=== PATIENT | male | born 1975 | race Caucasian/White ===

== ENCOUNTER 2016-03-12 17:14 | Emergency (ER) | payer OTHER ==
[2016-03-12 18:18] VITALS: BP 136/87
--- NOTE | 2016-03-12 18:45 | UC ---
Respiratory Complaint HPI - HPI Summary HPI Summary: cough and congestion for 4 weeks. Two rounds of antibiotics, currently on Augmentin and finished Zithromax. "I just can't take it anymore." Sinus congestion, ears "feel like they're underwater", dry tickly cough. No fever. No vomiting. - History of Current Complaint Chief Complaint: UCEar Stated Complaint: CHEST CONGESTION/EARS Time Seen by Provider: 03/12/16 18:31 Hx Obtained From: Patient Onset/Duration: Gradual Onset, Lasting Weeks - 4 Timing: Constant Severity Initially: Mild Severity Currently: Mild Character: Cough: Productive - scant sputum Aggravating Factors: Nothing Alleviating Factors: Nothing Associated Signs And Symptoms: Positive: URI, Nasal Congestion, Hoarseness, Sinus Discomfort. Negative: Dyspnea, Fever, Pleuritic Chest Pain, Wheezing, Hemoptysis, Dizziness - Risk Factors Pulmonary Embolism Risk Factors: Negative Cardiac Risk Factors: Negative Pseudomonas Risk Factors: Negative Tuberculosis Risk Factors: Negative - Allergies/Home Medications Allergies/Adverse Reactions: Allergies Allergy/AdvReac Type Severity Reaction Status Date / Time seasonal Allergy Sneezing Uncoded 03/04/16 18:21 PMH/Surg Hx/FS Hx/Imm Hx Endocrine History Of: Denies: Diabetes, Thyroid Disease, Hyperthyroidism, Hypothyroidism, Dyslipidemia Cardiovascular History Of: Reports: Hypertension Denies: Cardiac Disorders, Pacemaker/ICD, Myocardial Infarction, Congestive Heart Failure, Atrial Fibrillation, Deep Vein Thrombosis, Bleeding Disorders Respiratory History Of: Denies: COPD, Asthma GI/ History Of: Denies: Gastroesophageal Reflux, Ulcer, Gastrointestinal Bleed, Gall Bladder Disease, Kidney Stones, Diverticulitis, Renal Disease, Urosepsis Neurological History Of: Reports: Seizures Denies: TIA, CVA, Dementia, Migraine Psychological History Of: Reports: Depression Denies: Anxiety, Bipolar Disorder, Schizophrenia, Post Traumatic Stress Disorder Cancer History Of: Denies: Lung Cancer, Colorectal Cancer, Breast Cancer, Prostate Cancer, Cervical Cancer - Surgical History Surgical History: Yes Surgery Procedure, Year, and Place: right meniscus repair 2012., muscle surgery age 4 on eyes - Family History Known Family History: Positive: Cardiac Disease - Social History Occupation: Employed Full-time - home health care Lives: With Family Alcohol Use: Rare Substance Use Type: None Smoking Status (MU): Former Smoker Type: Cigarettes, Cigars Amount Used/How Often: 1/2 PPD Length of Time of Smoking/Using Tobacco: ON and OFF Have You Smoked in the Last Year: Yes When Did the Patient Quit Smoking/Using Tobacco: 8 YRS AGO Review of Systems Constitutional: Negative Skin: Negative Eyes: Negative ENT: Ear Ache - pressure, dec hearing, Nasal Discharge Respiratory: Cough Cardiovascular: Negative Gastrointestinal: Negative Genitourinary: Negative Motor: Negative Neurovascular: Negative Musculoskeletal: Negative Neurological: Negative Psychological: Negative All Other Systems Reviewed And Are Negative: Yes Physical Exam Triage Information Reviewed: Yes Appearance: Well-Appearing, No Pain Distress, Well-Nourished, Obese Vital Signs: Initial Vital Signs Temp 97.9 F 03/12/16 18:13 Pulse 76 03/12/16 18:13 Resp 18 03/12/16 18:13 BP 136/87 03/12/16 18:13 Pulse Ox 97 03/12/16 18:13 Vital Signs Reviewed: Yes Eye Exam: Normal ENT: Positive: Hearing grossly normal, Pharynx normal, Nasal congestion, Nasal drainage, TMs normal, Muffled/hoarse voice - hoarse. Negative: Pharyngeal erythema, TM bulging, TM dull, TM red, Tonsillar swelling, Tonsillar exudate, Trismus Respiratory Exam: Normal Respiratory: Positive: Lungs clear, Normal breath sounds, No respiratory distress, No accessory muscle use Cardiovascular Exam: Normal Musculoskeletal Exam: Normal Neurological Exam: Normal Psychological Exam: Normal Skin Exam: Normal Diagnostic Evaluation - Laboratory O2 Sat by Pulse Oximetry: 97 Respiratory Course/Dx - Differential Dx/Diagnosis Differential Diagnosis/HQI/PQRI: Bronchitis, Lower Resp Infection, Sinusitis Provider Diagnoses: URI Discharge - Discharge Plan Condition: Stable Disposition: HOME Prescriptions: Oxymetazoline HCl [Afrin Nasal [place]] 0.05 % NA BID PRN #1 spr PRN Reason: nasal/ear congestion Pseudoephedrine HCl [Sudafed 12 Hour] 120 mg PO BID PRN #20 tab PRN Reason: Congestion Patient Education Materials: Upper Respiratory Infection (ED) Referrals: Edna Morales PA [Primary Care Provider] -
== END 2016-03-12 18:51 | disposition home or self-care (01) ==
LOC: UCCORT 17:14
DX: J06.9 Acute upper respiratory infection, unspecified (principal); Z87.891 Personal history of nicotine dependence
CPT/HCPCS: 99212; G0463

== ENCOUNTER 2016-06-09 15:09 | Emergency (ER) | payer OTHER ==
[2016-06-09 17:03] VITALS: BP 130/76
--- NOTE | 2016-06-09 17:47 | UC ---
Skin Complaint HPI - History of Current Complaint Chief Complaint: UCSkin Time Seen by Provider: 06/09/16 17:35 Stated Complaint: RASH HANDS Hx Obtained From: Patient Onset/Duration: Gradual Onset, Lasting Days, Lasting Weeks - 2, Worse Since - onset Onset Severity: Mild Current Severity: Moderate Location: Discrete - both hands. Character: Pain, Redness Aggravating: Wet Conditions Alleviating: Nothing Associated Signs & Symptoms: Positive: Negative Related History: Other: - h/o eczema - Allergy/Home Medications Allergies/Adverse Reactions: Allergies Allergy/AdvReac Type Severity Reaction Status Date / Time seasonal Allergy Sneezing Uncoded 06/09/16 17:03 Review of Systems Skin: Rash All Other Systems Reviewed And Are Negative: Yes PMH/Surg Hx/FS Hx/Imm Hx Endocrine History Of: Denies: Diabetes, Thyroid Disease, Hyperthyroidism, Hypothyroidism, Dyslipidemia Cardiovascular History Of: Reports: Hypertension Denies: Cardiac Disorders, Pacemaker/ICD, Myocardial Infarction, Congestive Heart Failure, Atrial Fibrillation, Deep Vein Thrombosis, Bleeding Disorders Respiratory History Of: Denies: COPD, Asthma GI/ History Of: Denies: Gastroesophageal Reflux, Ulcer, Gastrointestinal Bleed, Gall Bladder Disease, Kidney Stones, Diverticulitis, Renal Disease, Urosepsis Neurological History Of: Reports: Seizures Denies: TIA, CVA, Dementia, Migraine Psychological History Of: Reports: Depression Denies: Anxiety, Bipolar Disorder, Schizophrenia, Post Traumatic Stress Disorder Cancer History Of: Denies: Lung Cancer, Colorectal Cancer, Breast Cancer, Prostate Cancer, Cervical Cancer - Surgical History Surgical History: Yes Surgery Procedure, Year, and Place: right meniscus repair 2012., muscle surgery age 4 on eyes - Family History Known Family History: Positive: Cardiac Disease, Hypertension, Diabetes - Social History Occupation: Employed Full-time Lives: With Family Alcohol Use: Rare Substance Use Type: None Smoking Status (MU): Former Smoker Type: Cigarettes, Cigars Amount Used/How Often: 1/2 PPD Length of Time of Smoking/Using Tobacco: ON and OFF Have You Smoked in the Last Year: Yes When Did the Patient Quit Smoking/Using Tobacco: 8 YRS AGO Physical Exam Triage Information Reviewed: Yes Appearance: Well-Appearing, No Pain Distress, Obese Vital Signs: Initial Vital Signs Temp 97.7 F 06/09/16 17:00 Pulse 71 06/09/16 17:00 Resp 16 06/09/16 17:00 BP 130/76 06/09/16 17:00 Pulse Ox 100 06/09/16 17:00 Vital Signs Reviewed: Yes Eyes: Positive: Conjunctiva Clear Neck exam: Normal Respiratory Exam: Normal Cardiovascular Exam: Normal Musculoskeletal Exam: Normal Neurological Exam: Normal Psychological Exam: Normal Skin: Positive: rashes - scaling rash dorsal hands with cracking. Course/Dx - Differential Diagnoses - Skin Complaint Differential Diagnoses: Eczema, [place], Urticaria - Diagnoses Provider Diagnoses: Eczema Discharge - Discharge Plan Condition: Stable Disposition: HOME Prescriptions: Betamethasone Dip 0.05% ON(NF) [Betamethasone Dipr 0.05% OINT(NF)] 1 applic TOPICAL BID #50 gm Patient Education Materials: Eczema (ED), Betamethasone Dipropionate (On the skin)
== END 2016-06-09 17:55 | disposition home or self-care (01) ==
LOC: UCCORT 15:09
DX: L30.9 Dermatitis, unspecified (principal); I10 Essential (primary) hypertension; G40.909 Epilepsy, unspecified, not intractable, without status epilepticus; F32.9 Major depressive disorder, single episode, unspecified; Z87.891 Personal history of nicotine dependence
CPT/HCPCS: 99212; G0463

== ENCOUNTER 2017-02-22 19:11 | Emergency (ER) | payer OTHER ==
[2017-02-22 20:00] VITALS: BP 149/89
[2017-02-22] MEDS ORDERED: Ondansetron ODT TAB* 4 MG PO ONE ×2 (20:06→21:00)
--- NOTE | 2017-02-22 20:20 | UC ---
Abdominal Pain Male HPI - History of Current Complaint Chief Complaint: UCGI Stated Complaint: NAUSEA, VOMITING, DIARRHEA Time Seen by Provider: 02/22/17 20:00 Hx Obtained From: Patient Onset/Duration: Gradual Onset - 2-3 days, Worse Since - today n/v/ d no fevers Timing: Constant Severity Initially: Moderate Severity Currently: Moderate Location: Diffuse Radiates: No Character: Cramping Aggravating Factor(s): Food Alleviating Factor(s): Rest Associated Signs And Symptoms: Positive: Decreased Appetite, Nausea, Vomiting, Diarrhea - Allergies/Home Medications Allergies/Adverse Reactions: Allergies Allergy/AdvReac Type Severity Reaction Status Date / Time seasonal Allergy Sneezing Uncoded 02/22/17 19:50 PMH/Surg Hx/FS Hx/Imm Hx Previously Healthy: No Endocrine History: Diabetes - "pre-diabetic" Cardiovascular History: Hypertension Neurological History: Seizures - Surgical History Surgical History: Yes Surgery Procedure, Year, and Place: right meniscus repair 2012., muscle surgery age 4 on eyes - Family History Known Family History: Positive: Cardiac Disease, Hypertension, Diabetes - Social History Occupation: Unemployed Lives: With Family Alcohol Use: Rare Substance Use Type: None Smoking Status (MU): Former Smoker Type: Cigarettes, Cigars Amount Used/How Often: 1/2 PPD Length of Time of Smoking/Using Tobacco: ON and OFF Have You Smoked in the Last Year: Yes When Did the Patient Quit Smoking/Using Tobacco: 8 YRS AGO Review of Systems Constitutional: Chills, Fatigue Skin: Negative Eyes: Negative ENT: Negative Respiratory: Negative Cardiovascular: Negative Gastrointestinal: Abdominal Pain, Vomiting, Diarrhea, Nausea Genitourinary: Negative Motor: Negative Neurovascular: Negative Musculoskeletal: Negative Neurological: Negative Psychological: Negative Is Patient Immunocompromised?: No All Other Systems Reviewed And Are Negative: Yes Physical Exam Triage Information Reviewed: Yes Appearance: No Pain Distress, Ill-Appearing, Obese Vital Signs: Initial Vital Signs Temp 98.6 F 02/22/17 19:52 Pulse 83 02/22/17 19:52 Resp 20 02/22/17 19:52 BP 149/89 02/22/17 19:52 Pulse Ox 98 02/22/17 19:52 Vital Signs Reviewed: Yes Eye Exam: Normal Eyes: Positive: Conjunctiva Clear ENT Exam: Normal ENT: Positive: Normal ENT inspection, Hearing grossly normal, Pharynx normal, TMs normal, Uvula midline. Negative: Nasal congestion, Nasal drainage, Tonsillar swelling, Tonsillar exudate, Trismus, Muffled voice, Hoarse voice, Dental tenderness, Sinus tenderness Dental Exam: Normal Neck exam: Normal Neck: Positive: Supple, Nontender, No Lymphadenopathy Respiratory Exam: Normal Respiratory: Positive: Chest non-tender, Lungs clear, Normal breath sounds, No respiratory distress, No accessory muscle use Cardiovascular Exam: Normal Cardiovascular: Positive: RRR, No Murmur, Pulses Normal, Brisk Capillary Refill Abdominal Exam: Other Abdomen Description: Positive: No Organomegaly, Soft, Other: - difuse discomfort. Negative: CVA Tenderness (R), CVA Tenderness (L), McBurney's Point Tenderness, Peritoneal Signs Bowel Sounds: Positive: Present Musculoskeletal Exam: Normal Musculoskeletal: Positive: Strength Intact, ROM Intact, No Edema Neurological Exam: Normal Neurological: Positive: Alert, Muscle Tone Normal Psychological Exam: Normal Skin Exam: Normal Diagnostics - Laboratory Diagnostic Studies Completed/Ordered: FSBS 82mg/dl, UA +1 blood trace protien Re-Evaluation - Re-Evaluation First Eval Change: Improved - after Zofran drank a glass of water no further vomiting-- Abd Pain Male Course/Dx - Course Course Of Treatment: rest zofran, fluids in small amounts follow with pcp if not resolved in 1-2 days - Differential Dx/Clinical Impression Provider Diagnoses: Acute Nausea/vomiting/diarrhea Discharge - Discharge Plan Condition: Stable Disposition: HOME Patient Education Materials: Acute Nausea and Vomiting (ED), Acute Diarrhea (ED ), Nutrition Tips for Relief of Diarrhea (ED) Referrals: Edna Morales PA [Primary Care Provider] - 2 Days
--- OUTSIDE RECORDS SUMMARY | 2017-02-24 11:21 | XMS REPORT | Clinical Summary ---
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, without mention of intractable epilepsy 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 Active GWENDOLYN Other ant neck, KERATOSIS SUSAN seborrheic mult on back KARLA JACOME keratosis Obstructive 327.23 Active GWENDOLYN Obstructive sleep apnea 06/21 06/21 SUSAN sleep apnea KARLA JACOME (adult) (pediatric) Asthma, 493.10 Active GWENDOLYN Intrinsic Exercise intermittent, 11/05 11/05 SUSAN asthma, induced moderate KARLA JACOME unspecified MORBID Active GWENDOLYN Morbid obesity OBESITY 11/05 11/05 SUSAN JACOME Hypertension 401.1 Active GWENDOLYN Benign under control 11/05 07/11 SUSAN essential KARLA JACOME hypertension Prediabetes 790.29 Active Sofie Other abnormal A1c--5.7 11/06 11/06 Kianna glucose 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 Immunization V05.9 Active GWENDOLYN Need for 04/21 04/21 SUSAN prophylactic KARLA JACOME vaccination and inoculation against unspecified single disease Systolic 785.2 Active GWENDOLYN Undiagnosed grade 2-3 / heart murmur 04/21 04/21 SUSAN cardiac 6 KARLA JACOME murmurs pansystolic murmur Annual exam V72.31 Active GWENDOLYN Routine 04/21 04/21 SUSAN gynecological KARLA JACOME examination Medication List Medication Instructions Start Stop Generic Name NDC Status Provider Patient Date Date Instruction DEPAKOTE ER 3 by mouth DIVALPROEX 572566815 Active GWENDOLYN 500 MG ORAL every 11/24 SODIUM 13 SUSAN TABLET morning, 4 by ACOSTA EXTENDED mouth qhs PA RELEASE 24 HOUR TEGRETOL-XR 2 by mouth CARBAMAZEPINE 785772323 Active GWENDOLYN 400 MG ORAL every BID 11/24 05 SUSAN TABLET ACOSTA EXTENDED PA RELEASE 12 HOUR VENTOLIN 2 puffs every ALBUTEROL 129953961 Active GWENDOLYN HFA 108 (90 4 - 6 hours 11/05 SULFATE 20 SUSAN Base) as needed KARLA MCG/ACT PA INHALATION AEROSOL SOLUTION VANDA daily FEXOFENADINE 274726732 Active GWENDOLYN ALLERGY 07/11 HCL TABS 14 SUSAN TABLET KARLA JACOME LISINOPRIL TAKE 1 TABLET LISINOPRIL 289766172 Active GWENDOLYN 20 MG ORAL BY MOUTH 08/06 01 SUSAN TABLET EVERY DAY KARLA JACOME Immunizations Vaccine Administration Date Value Standard Description PPD results in mm 0 TB-PPD, interpretation of negative results influenza immunization (Flu given influenza virus vaccine, Vax) has been administered unspecified formulation Vital Signs Date Name Value Unit Range Description blood pressure, diastolic 77 mm[Hg] BP hanccok blood pressure, systolic 120 mm[Hg] BP sys height E&M 71 [in_us] Bdy height pulse rate E&M 82 /min Heart rate respiratory rate E&M 24 /min Resp rate temperature E&M 98.3 [degF] Body temperature weight E&M 328 [lb_av] Weight Measured blood pressure, diastolic 76 mm[Hg] BP [place] blood pressure, systolic 130 mm[Hg] BP sys height E&M 71 [in_us] Bdy height pulse rate E&M 79 /min Heart rate respiratory rate E&M 18 /min Resp rate temperature E&M 98.5 [degF] Body temperature weight E&M 313 [lb_av] Weight Measured blood pressure, diastolic 75 mm[Hg] BP [place] blood pressure, systolic 118 mm[Hg] BP sys height E&M 71 [in_us] Bdy height pulse rate E&M 73 /min Heart rate respiratory rate E&M 18 /min Resp rate temperature E&M 98.1 [degF] Body temperature weight E&M 325 [lb_av] Weight Measured blood pressure, diastolic, second 90 mm[Hg] BP hancock observation blood pressure, diastolic 99 mm[Hg] BP [place] blood pressure, systolic, second 135 mm[Hg] BP sys observation blood pressure, systolic 142 mm[Hg] BP sys height E&M 71 [in_us] Bdy height pulse rate E&M 76 /min Heart rate respiratory rate E&M 22 /min Resp rate temperature E&M 97.6 [degF] Body temperature weight E&M 333 [lb_av] Weight Measured Diagnostic Results Date Name Value Unit Range Description Lab Report: A1C--5.8, BASIC METABOLIC PANEL, LDL--100 - Chemistry Estimated Glomerular Filtration >60 mL/min mL/min/1.73m2 > 60 Rate (calc) Glomerular Filtration rate >60 mL/min >60 [place] urea nitrogen/creatinine ratio, 20.0 ratio serum sodium, serum 144 mmol/L 196-375 7057/12/12 potassium, serum 3.6 mmol/L 3.5-5.1 chloride, serum 106 mmol/L 98-107 carbon dioxide, venous blood 30 mmol/L 21-32 anion gap, serum 8 mEq/L 8-16 calcium, serum 9.2 mg/dL 8.5-10.1 cholesterol, serum 201 mg/dL <200 triglyceride, serum, fasting 258 mg/dL <150 HDL cholesterol, serum 49 mg/dL >40 LDL cholesterol, serum 100 mg/dL < 100 alanine aminotransferase (SGPT), 49 U/L -78 serum creatinine, serum 0.6 mg/dL 0.6-1.3 urea nitrogen, blood 12 mg/dL 7-18 blood glucose, random 97 mg/dL 74-106 Estimated Average Glucose 120 mg/dL hemoglobin A1C, blood, as % of 5.8 % 4.2-6.3 total hemoglobin Lab Report: BLOOD CULTURE--no growth, final - Microbiology blood culture NO GROWTH: FINAL REPORT blood culture NO GROWTH: FINAL REPORT Lab Report: BLOOD CULTURE--no growth, final - Serology blood culture, anaerobic NO GROWTH: FINAL REPORT blood culture, anaerobic NO GROWTH: FINAL REPORT Lab Report: COMPREHENSIVE METABOLIC PANEL, LACTIC ACID - Chemistry urea nitrogen/creatinine ratio, 12.2 ratio serum sodium, serum 138 mmol/L 677-450 5007/04/14 potassium, serum 4.0 mmol/L 3.5-5.1 chloride, serum 103 mmol/L 98-107 carbon dioxide, venous blood 26 mmol/L -32 anion gap, serum 9 mEq/L 8-16 calcium, serum 8.5 mg/dL 8.5-10.1 protein, total, serum 7.7 g/dL 6.4-8.2 albumin, serum 4.0 g/dL 3.4-5.0 globulins, serum, total 3.7 g/dL 1.9-4.3 albumin/globulin ratio, serum 1.1 ratio aspartate aminotransferase (SGOT), 43 U/L 15-37 serum alanine aminotransferase (SGPT), 64 U/L 12-78 serum Glomerular Filtration rate >60 mL/min >60 [place] Estimated Glomerular Filtration >60 mL/min mL/min/1.73m2 > 60 Rate (calc) creatinine, serum 0.9 mg/dL 0.6-1.3 urea nitrogen, blood 11 mg/dL 7-18 blood glucose, random 106 mg/dL 74-106 Lab Report: UA, CBS W/AUTOMATED DIFF, SLIDE REVIEW - Chemistry leukocyte (WBC) esterase, urine NEGATIVE NEGATIVE urobilinogen, urine 0.2 E.U./DL {Ehrlich_U}/dL 0.2-1.0 Absolute Neutrophil count 4.67 K/UL {Cells}/uL 1.8-7.0 Absolute Lymphocytes 0.89 10*3/uL 1.0-4.0 BASOPHILS 0.03 0.0-0.1 Lab Report: UA, CBS W/AUTOMATED DIFF, SLIDE REVIEW - Hematology Eosinophil Absolute Count 0.07 10*3/uL 0.0-0.5 leukocyte count, blood 7.5 10*3/mm3 3.4-10.5 erythrocyte (RBC) count 4.76 M/UL 10*6/mm3 4.20-5.80 hemoglobin, blood 13.9 g/dL 12.8-17.0 hematocrit, blood 39.6 % 38.0-48.0 mean corpuscular volume, RBC 83.2 fL 80.0-96.0 mean corpuscular hemoglobin, RBC 29.2 pg 27.0-33.0 mean corpuscular hemoglobin concentration, 35.1 G/DL % 31.7- 36.0 RBC platelet count 188 10*3/mm3 019-853 2909/04/14 red blood cell distribution width, size 40.1 fL 36-51 density mean platelet volume 10.2 fL 6.6-10.6 neutrophils as percent of blood leukocytes 62.6 % 33.0-73.0 lymphocytes as percent of blood leukocytes 11.9 % 20.0-42.0 monocytes as percent of blood leukocytes 24.2 % 0.0-10.0 eosinophils as percent of blood leukocytes 0.9 % 0.0-6.6 basophils as percent of blood leukocytes 0.4 % 0.0-1.1 Lab Report: UA, CBS W/AUTOMATED DIFF, SLIDE REVIEW - Urinalysis urine color YELLOW YELLOW blood in urine (hemoglobin) by dipstick TRACE NEGATIVE nitrite, urine, semiquantitative NEGATIVE NEGATIVE appearance, urine CLEAR CLEAR glucose, urine, semiquantitative NEGATIVE NEGATIVE bilirubin, urine NEGATIVE NEGATIVE ketones, urine, by test strip NEGATIVE NEGATIVE specific gravity, urine 1.020 1.010-1.030 Encounters Code Encounter Date Provider Facility CPT-70511 Ofc Vst, Est Level III GWENDOLYN [facility] 15:09:48 EDT PA CPT-82495 Ofc Vst, Est Level II GWENDOLYN [facility] 16:14:19 EDT PA CPT-23240 Ofc Vst, Est Level III GWENDOLYN [facility] 17:56:23 EST PA CPT-72811 Ofc Vst, Est Level III GWENDOLYN [facility] 10:30:23 EDT PA CPT-30021 Ofc Vst, Est Level III GWENDOLYN [facility] 14:43:14 EST PA CPT-06741 Ofc Vst, Est Level III GWENDOLYN [facility] 10:28:48 EST PA CPT-18359 Ofc Vst, Est Level III GWENDOLYN ACOSTA [facility] 10:11:19 EDT PA CPT-76188 Ofc Vst, New Level II GWENDOLYN ACOSTA [facility] 09:53:40 EDT PA Procedures Code Procedure Name Date Entry Date Standard Description CPT-94978 Venipuncture 17:45:48 EST CPT-15607 Est - PE 40-64 Y 15:49:03 EST CPT-05082 Influenza 3 yrs. & up 15:34:48 EST CPT-26375 Admin one Imm 15:34:48 EST CPT-23275 Venipuncture 13:49:13 EDT CPT-85745 EKG w/ Int/rep 10:25:48 EDT CPT-98906 Est - PE 18-39 Y 17:44:56 EDT CPT-37574 Urine Dip - In House 11:14:28 EDT CPT-91219 Venipuncture 11:12:41 EDT CPT-98970 HIV Pretest counseling 11:12:40 EDT CPT-72253 PPD 11:09:44 EDT CPT-93819 Influenza 3 yrs. & up 09:45:10 EDT CPT-95578 Admin one Imm 09:45:10 EDT CPT-10963 Venipuncture 09:45:10 EDT CPT-04937 HIV Pretest counseling 09:45:10 EDT
--- OUTSIDE RECORDS SUMMARY | 2017-02-24 11:22 | XMS REPORT | Clinical Summary ---
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 Immunization V05.9 Active GWENDOLYN Need for 04/21 04/21 SUSNA prophylactic KARLA JACOME vaccination and inoculation against [...] Instruction DEPAKOTE ER 3 by mouth DIVALPROEX 325499418 Active GWENDOLYN 500 MG ORAL every 11/24 SODIUM 13 SUSAN TABLET morning, 4 by ACOSTA EXTENDED mouth qhs PA RELEASE 24 HOUR TEGRETOL-XR 2 by mouth CARBAMAZEPINE 732360769 Active GWENDOLYN 400 MG ORAL every BID 11/24 05 SUSAN TABLET ACOSTA EXTENDED PA RELEASE 12 HOUR VENTOLIN 2 puffs every ALBUTEROL 835896776 Active GWENDOLYN HFA 108 (90 4 - 6 hours 11/05 SULFATE 20 SUSAN Base) as needed KARLA MCG/ACT PA INHALATION AEROSOL SOLUTION VANDA daily FEXOFENADINE 502158866 Active GWENDOLYN ALLERGY 07/11 HCL TABS 14 SUSAN TABLET KARLA JACOME LISINOPRIL TAKE 1 TABLET LISINOPRIL 311983735 Active GWENDOLYN 20 MG ORAL BY MOUTH 08/06 01 SUSAN TABLET EVERY DAY KARLA JACOME Immunizations Vaccine Administration Date Value Standard Description TB-PPD, interpretation of negative results PPD results in mm 0 influenza immunization (Flu given influenza virus vaccine, Vax) has been administered unspecified formulation Vital Signs Date Name Value Unit Range Description blood pressure, diastolic 77 mm[Hg] BP hancock blood pressure, systolic 120 mm[Hg] BP sys [...] Name Value Unit Range Description Lab Report: BLOOD CULTURE--no growth, final - Microbiology blood culture NO GROWTH: FINAL REPORT blood culture NO GROWTH: FINAL REPORT Lab Report: BLOOD CULTURE--no growth, final - Serology blood culture, anaerobic NO GROWTH: FINAL REPORT blood culture, anaerobic NO GROWTH: FINAL REPORT Lab Report: COMPREHENSIVE METABOLIC PANEL, LACTIC ACID - Chemistry blood glucose, random 106 mg/dL 74-106 urea nitrogen, blood 11 mg/dL 7-18 creatinine, serum 0.9 mg/dL 0.6-1.3 Estimated Glomerular Filtration >60 mL/min mL/min/1.73m2 > 60 Rate (calc) Glomerular Filtration rate >60 mL/min >60 [place] urea nitrogen/creatinine ratio, 12.2 ratio serum sodium, serum 138 mmol/L 635-919 5962/04/14 potassium, serum 4.0 mmol/L 3.5-5.1 chloride, serum 103 mmol/L 98-107 carbon dioxide, venous blood 26 mmol/L 21-32 anion gap, serum 9 mEq/L 8-16 calcium, serum 8.5 mg/dL 8.5-10.1 protein, total, serum 7.7 g/dL 6.4-8.2 albumin, serum 4.0 g/dL 3.4-5.0 globulins, serum, total 3.7 g/dL 1.9-4.3 albumin/globulin ratio, serum 1.1 ratio aspartate aminotransferase (SGOT), 43 U/L 15-37 serum alanine aminotransferase (SGPT), 64 U/L 12-78 serum Lab Report: UA, CBS W/AUTOMATED DIFF, SLIDE [...] 31.7- 36.0 RBC platelet count 188 10*3/mm3 409-028 4870/04/14 red blood cell distribution width, size 40.1 [...] REVIEW - Urinalysis urine color YELLOW YELLOW appearance, urine CLEAR CLEAR glucose, urine, semiquantitative NEGATIVE NEGATIVE bilirubin, urine NEGATIVE NEGATIVE ketones, urine, by test strip NEGATIVE NEGATIVE specific gravity, urine 1.020 1.010-1.030 blood in urine (hemoglobin) by dipstick TRACE NEGATIVE nitrite, urine, semiquantitative NEGATIVE NEGATIVE Encounters Code Encounter Date Provider Facility CPT-40933 Ofc Vst, Est Level III [facility] 15:09:48 EDT PA CPT-59165 Ofc Vst, Est Level II [facility] 16:14:19 EDT PA CPT-30450 Ofc Vst, Est Level III GWENDOLYN ACOSTA [facility] 17:56:23 EST PA CPT-49018 Ofc Vst, Est Level III GWENDOLYN ACOSTA [facility] 10:30:23 EDT PA CPT-91651 Ofc Vst, Est Level III GWENDOLYN ACOSTA [facility] 14:43:14 EST PA CPT-55311 Ofc Vst, Est Level III GWENDOLYN ACOSTA [facility] 10:28:48 EST PA CPT-27546 Ofc Vst, Est Level III GWENDOLYN SUSAN ACOSTA [facility] 10:11:19 EDT PA CPT-28715 Ofc Vst, New Level II GWENDOLYN ACOSTA [facility] 09:53:40 EDT PA Procedures Code Procedure Name Date Entry Date Standard Description CPT-51208 Venipuncture 17:45:48 EST CPT-58395 Est - PE 40-64 Y 15:49:03 EST CPT-25865 Influenza 3 yrs. & up 15:34:48 EST CPT-49514 Admin one [facility] 15:34:48 EST CPT-20178 Venipuncture 13:49:13 EDT CPT-62627 EKG w/ Int/rep 10:25:48 EDT CPT-28558 Est - PE 18-39 Y 17:44:56 EDT CPT-41824 Urine Dip - In House 11:14:28 EDT CPT-85170 Venipuncture 11:12:41 EDT CPT-04350 HIV Pretest counseling 11:12:40 EDT CPT-17852 PPD 11:09:44 EDT CPT-34053 Influenza 3 yrs. & up 09:45:10 EDT CPT-72786 Admin one Imm 09:45:10 EDT CPT-04687 Venipuncture 09:45:10 EDT CPT-59525 HIV Pretest counseling 09:45:10 EDT
== END 2017-02-22 21:13 | disposition home or self-care (01) ==
LOC: UCCORT 19:11
DX: R11.2 Nausea with vomiting, unspecified (principal); R19.7 Diarrhea, unspecified; R53.83 Other fatigue; R73.03 Prediabetes; I10 Essential (primary) hypertension; R56.9 Unspecified convulsions; E66.9 Obesity, unspecified; Z87.891 Personal history of nicotine dependence
CPT/HCPCS: 81003; 99212; A9270-GY; G0463

== ENCOUNTER 2017-12-27 08:17 | Emergency (ER) | payer OTHER ==
[2017-12-27 08:42] VITALS: BP 126/77
--- NOTE | 2017-12-27 09:08 | UC ---
Throat Pain/Nasal Gavino HPI - HPI Summary HPI Summary: Sore throat, congestion, cough for about 7 days. No fever. No sinus disease or prior surgery. No asthma but he has needed MDI in the past for cough and wheezing. cough is productive of yellow. No sob or chest pain. - History of Current Complaint Chief Complaint: UCRespiratory Stated Complaint: SORE THROAT, COUGH, CONGESTION Time Seen by Provider: 12/27/17 08:29 Hx Obtained From: Patient Onset/Duration: Gradual Onset, Lasting Days Severity: Moderate Pain Intensity: 0 Cough: Productive Associated Signs & Symptoms: Positive: Wheezing, Sinus Discomfort, Nasal Discharge. Negative: FB Sensation, Hoarseness, Fever, Vomiting, Rash - Epiglottits Risk Factors Epiglottis Risk Factors: Negative - Allergies/Home Medications Allergies/Adverse Reactions: Allergies Allergy/AdvReac Type Severity Reaction Status Date / Time seasonal Allergy Sneezing Uncoded 12/27/17 08:37 PMH/Surg Hx/FS Hx/Imm Hx Previously Healthy: No - MASON. - Surgical History Surgical History: Yes Surgery Procedure, Year, and Place: right meniscus repair 2012., muscle surgery age 4 on eyes - Family History Known Family History: Positive: Cardiac Disease, Hypertension, Diabetes - Social History Occupation: Employed Full-time Lives: With Family - Daughter had similar illness prior to this. Alcohol Use: Rare Substance Use Type: None Smoking Status (MU): Former Smoker Type: Cigarettes, Cigars Amount Used/How Often: 1/2 PPD Length of Time of Smoking/Using Tobacco: ON and OFF Have You Smoked in the Last Year: Yes When Did the Patient Quit Smoking/Using Tobacco: 8 YRS AGO Review of Systems ENT: Sore Throat, Sinus Congestion Respiratory: Cough All Other Systems Reviewed And Are Negative: Yes Physical Exam Triage Information Reviewed: Yes Appearance: Well-Appearing, Obese Vital Signs: Initial Vital Signs Temp 97.3 F 12/27/17 08:37 Pulse 73 12/27/17 08:37 Resp 18 12/27/17 08:37 BP 126/77 12/27/17 08:37 Pulse Ox 97 12/27/17 08:37 Vital Signs Reviewed: Yes Eyes: Positive: Conjunctiva Clear ENT: Positive: Nasal congestion, TMs normal, Tonsillar swelling, Hoarse voice, Sinus tenderness, Uvula midline. Negative: Nasal drainage, TM bulging, TM dull , TM red, Tonsillar exudate, Trismus, Muffled voice Neck: Positive: Supple, Nontender, No Lymphadenopathy Respiratory: Positive: Lungs clear, No respiratory distress, No accessory muscle use, Wheezing. Negative: Respiratory distress, Decreased breath sounds, Accessory muscle use Cardiovascular: Positive: No Murmur, Pulses Normal, Brisk Capillary Refill Abdomen Description: Positive: No Organomegaly, Soft. Negative: Distended, Guarding Male Genital Exam: Positive: No Hernia Musculoskeletal: Positive: Strength Intact, ROM Intact, No Edema Neurological: Positive: Alert, Muscle Tone Normal. Negative: Fatigued Psychological: Positive: Age Appropriate Behavior Skin: Negative: rashes Throat Pain/Nasal Course/Dx - Course Course Of Treatment: No signs of bacterial sinusitis or pneumonia. Supportive care described in detail. Delayed antibiotics for new symptoms or if no resolution in 3-4 more days. - Differential Dx/Diagnosis Provider Diagnoses: viral uri. viral bronchitis. Discharge - Sign-Out/Discharge Documenting (check all that apply): Patient Departure All imaging exams completed and their final reports reviewed: No Studies - Discharge Plan Condition: Good Disposition: HOME Prescriptions: Albuterol HFA INHALER* [Ventolin HFA Inhaler*] 1 - 2 puff INH Q4H PRN #1 mdi PRN Reason: Cough Amoxicillin PO (*) [Amoxicillin 500 MG CAP*] 500 mg PO TID #30 cap Benzonatate CAP* [Tessalon 100 MG CAP*] 100 mg PO TID #21 cap Inhaler, Assist Devices [Aerochamber Mini] 1 each MC Q2HR #1 spacer Patient Education Materials: Upper Respiratory Infection (ED) Referrals: Edna Morales PA [Primary Care Provider] - Additional Instructions: Start with nasal irrigation and decongestants. Start antibiotics in 3-4 days if not better or new worsening symptoms. - Billing Disposition and Condition Condition: GOOD Disposition: Home
== END 2017-12-27 09:07 | disposition home or self-care (01) ==
LOC: UCCORT 08:17
DX: J06.9 Acute upper respiratory infection, unspecified (principal); J20.8 Acute bronchitis due to other specified organisms; J30.2 Other seasonal allergic rhinitis; Z87.891 Personal history of nicotine dependence
CPT/HCPCS: 99212; G0463